=== PATIENT | female | born 1975 | race Caucasian/White ===

== ENCOUNTER 2018-09-17 11:09 | Emergency (ER) | payer BC, OTHER ==
--- NOTE | 2018-09-17 13:18 | RAD ---
LEFT SHOULDER 3 VIEWS: HISTORY: Shoulder pain. FINDINGS: The AC and glenohumeral joint spaces appear fairly unremarkable. No fracture or other findings. IMPRESSION: Unremarkable left shoulder. POS: JIM
== END 2018-09-17 12:37 | disposition home or self-care (01) ==
LOC: ERS 11:09
DX: S46.912A Strain of unspecified muscle, fascia and tendon at shoulder and upper arm level, left arm, initial encounter (principal); E05.90 Thyrotoxicosis, unspecified without thyrotoxic crisis or storm; Z87.891 Personal history of nicotine dependence; X50.9XXA Other and unspecified overexertion or strenuous movements or postures, initial encounter

== ENCOUNTER 2018-10-30 15:00 | Outpatient (CLI) | payer OTHER | END 2018-10-30 15:01 | disposition home or self-care (01) | LOC: BICMAMMO 15:00 | PROVIDERS: ATTEND Family Medicine | DX: Z12.31 Encounter for screening mammogram for malignant neoplasm of breast (principal) | CPT/HCPCS: 77063; 77067 ==

== ENCOUNTER 2021-05-18 15:00 | Outpatient (CLI) | payer OTHER | END 2021-05-18 15:01 | disposition home or self-care (01) | LOC: BICMAMMO 15:00 | PROVIDERS: ATTEND Family Medicine | DX: Z13.820 Encounter for screening for osteoporosis (principal); Z87.81 Personal history of (healed) traumatic fracture | CPT/HCPCS: 77080 ==